=== PATIENT | male | born 1980 | race African-American/Black ===

== ENCOUNTER 2022-09-27 11:01 | Emergency (ER) | payer OTHER ==
--- OUTSIDE RECORDS SUMMARY | 2022-09-27 11:05 | XMS REPORT | Continuity of Care Document ---
:1980 Author Organization [facility] t Address [address] [facility] [address] [place] [address] Care Team Providers Name Role Phone Pcp-None Primary Care Physician Unavailable Betsy Acevedo Attending Clinician Unavailable LISA GAYTAN Attending Clinician Unavailable Lisa Lee Attending Clinician Vinh Skaggs Attending Clinician Unavailable Killian Blakely Attending Clinician Unavailable Payers Payer Name Policy Type Policy Number Effective Date Expiration Date S ource Problems This patient has no known problems. Allergies, Adverse Reactions, Alerts Allergy Allergy Status Severity Reaction(s) Onset Inactive Treating Comm ents Source Name Type Date Date Clinician No Known DA Active U 2021-02 [facility] 1-06 Allergie 00:00: s 00 No Known DA [facility]ie 00:00: s 00 No Known DA Active U 2021-02 [facility] 0-22 Allergie 00:00: s 00 Social History Social Habit Start Date Stop Date Quantity Comments Source Gender identity 2021-12-19 Identifies as male [facility] 12:08:35 gender (finding) Sexual orientation 2021-12-19 Heterosexual [facility] 12:08:35 (finding) Exposure to 2021-12-11 2021-12-21 Not sure [facility] SARS-CoV-2 (event) 00:00:00 17:14:00 Sex Ass[birth year] At [birth year] [facility] alth 00:00:00 00:00:00 Medications This patient has no known medications. Vital Signs Vital Name Observation Time Observation Value Comments Source Heart rate 2021-12-21 17:14:00 72 /min [facility] Body temperature 2021-12-21 17:14:00 37.11 [facility] Respiratory rate 2021-12-21 17:14:00 18 /min [facility] Body height 2021-12-21 17:14:00 203.2 cm [facility] Body weight 2021-12-21 17:14:00 104.327 kg Rodrig[facility] BMI 2021-12-21 17:14:00 25.27 kg/m2 [facility] Oxygen saturation in 2021-12-21 17:14:00 98 /min [facility] Arterial blood by Pulse oximetry Systolic blood pressure 2021-12-21 17:14:00 151 mm[Hg] [facility] Diastolic blood pressure 2021-12-21 17:14:00 90 mm[Hg] [facility] Heart rate 2021-12-21 17:14:00 72 /min [facility] ealt Body temperature 2021-12-21 17:14:00 37.11 [facility] Respiratory rate 2021-12-21 17:14:00 18 /min [facility] Body height 2021-12-21 17:14:00 203.2 cm [facility] Body weight 2021-12-21 17:14:00 104.327 kg [facility] BMI 2021-12-21 17:14:00 25.27 kg/m2 [facility] ealt Oxygen saturation in 2021-12-21 17:14:00 98 /min [facility] Arterial blood by Pulse oximetry Systolic blood pressure 2021-12-21 17:14:00 151 mm[Hg] [facility] Diastolic blood pressure 2021-12-21 17:14:00 90 mm[Hg] [facility] Procedures This patient has no known procedures. Encounters Start End Encounter Admission Attending Care Care Encounter Source Date/Time Date/Time Type Type Clinicians Facility Department ID 2022-01-01 2022-01-01 Emergency Emergency GEORGES Acevedogarland [facility] [id number] [facility] 03:54:00 04:52:00 Betsy 07 2021-12-21 2021-12-22 Emergency [facility] [id number] [place] 17:48:00 04:42:00 [facility] 2021-12-21 2021-12-22 Emergency JAVAN Gaytan [id number] [place] 17:48:00 04:42:00 [place] [id number] [facility] .[id number] 2021-12-18 Emergency Emergency Skefos, [facility] [id number] [facility] 01:47:00 06:58:00 Chrystan 2021-12-18 2021-12-18 Emergency Emergency Skefos, [facility] [id number] [facility] 01:47:00 01:47:00 Chrystan 2021-12-17 2021-12-17 Emergency Emergency Killian Blakely [facility] JM [id number] [facility] 10:45:00 13:15:00 78 2021-12-17 2021-12-17 Emergency [facility] [id number] [facility] 10:45:00 10:45:00 78 Results Test Description Test Time Test Comments Results Result Comments Source Complete Blood Count Auto Diff 2021-12-18 02:43:00 Test Item Value Reference Range Interpretation Comme nts White Blood Count (test code = WBCT) 12.3 x10 3/uL 4.4-10.5 H Red Blood Count (test code = RBC) 3.99 x10 6/uL 4.10-5.70 L Hemoglobin (test code = HGBT) 11.9 g/dL 13.4-17.4 L Hematocrit (test code = HCTT) 35.9 % 38.7-52.0 L Mean Corpuscular Volume (test code = MCV) 90.00 fL 80.00-100.00 N Mean Corpuscular Hemoglobin (test code = MCH) 29.8 pg 27.0-32. 5 N Mean Corpuscular HGB Conc (test code = MCHC) 33.10 g/dL 32.00-37. 50 N RDW Coefficient of Variation (test code = RDWCV) 12.5 % 11.5- 14.5 N Platelet Count (test code = PLTT) 210.0 x10 3/uL 140.0-440.0 N Mean Platelet Volume (test code = MPV) 9.5 fL Immature Granulocytes % (Auto) (test code = IMMGRAN%) 0.2 % 0.0-5.0 N Neutrophils % (Auto) (test code = NE%) 79.0 % 36.0-70.0 H Lymphocytes % (Auto) (test code = LY%) 12.9 % 12.0-44.0 N Monocytes % (Auto) (test code = MO%) 7.5 % 0.0-11.0 N Eosinophils % (Auto) (test code = EO%) 0.2 % 0.0-7.0 N Basophils % (Auto) (test code = BA%) 0.2 % 0.0-2.0 N Immature Granulocytes # (Auto) (test code = IMMGRAN#) 0.03 x10 3/uL Neutrophils # (Auto) (test code = NE#) 9.7 x10 3/uL 1.6-7.4 H Lymphocytes # (Auto) (test code = LY#) 1.59 x10 3/uL 0.50-4.60 N Monocytes # (Auto) (test code = MO#) 0.92 x10 3/uL 0.00-1.20 N Eosinophils # (Auto) (test code = EO#) 0.02 x10 3/uL 0.00-0.74 N Basophils # (Auto) (test code = BA#) 0.03 x10 3/uL 0.00-0.21 N nRBC Abs (test code = NRBCA) 0 nRBC Pct (test code = NRBCP) 0 % Comprehensive Metabolic [id number] 02:43:00 Test Item Value Reference Range Interpretation Comments SODIUM (test code = NA) 139.0 mmol/L 136.0-145.0 N Potassium,K (test code = K) 4.8 mmol/L 3.0-5.1 N Chloride (test code = CL) 104 mmol/L 98-107 N Carbon Dioxide (test code = 30 mmol/L 20-31 N CO2) Anion Gap (test code = GAP) 5 mmol/L 5-15 N Blood Urea Nitrogen (test code 25 mg/dL 9-23 H = BUN) Creatinine (test code = CREATT) 1.29 mg/dL 0.55-1.02 H Creatinine Clr Calc Pharmacy 103.36 mL/min (test code = CRCLPHA) Estimated GFR ( Catrina > 60 mL/min/1.73m2 (test code = EGFRAA) Estimated GFR (Non Afr Catrina > 60 mL/min/1.73m2 (test code = EGFRNAA) BUN/Creatinine Ratio (test code 19 ratio 10-20 N = BCRATIO) Glucose (test code = GLU) 99 mg/dL 74-106 N Osmolality,Calculated (test 291.9 code = OSMOC) Calcium (test code = CA) 9.3 mg/dL 8.3-10.6 N Bilirubin,Total (test code = 0.9 mg/dL 0.2-1.1 N BILIT) Aspartate Amino Transferase 46 U/L 0-34 H (test code = AST) Alanine Aminotransferase (test 14 U/L 10-49 N code = ALT) Total Protein (test code = TP) 7.8 g/dL 5.7-8.2 N Albumin Level (test code = ALB) 4.6 g/dL 3.2-4.8 N Globulin (test code = GLOB) 3.2 mg/dL 2.3-3.5 N Albumin/Globulin Ratio (test 1.4 ratio 0.8-2.0 N code = AGRATIO) Alkaline Phosphatase (test code 73 U/L 46-116 N = ALP) [id number] 02:43:00 Test Item Value Reference Range Interpretation Comments Lipase (test code = LIP) 41 U/L 12-53 N Complete Blood Count Auto [id number] 11:20:00 Test Item Value Reference Range Interpretation Comments White Blood Count (test code = 8.8 x10 3/uL 4.4-10.5 N WBCT) Red Blood Count (test code = 4.42 x10 6/uL 4.10-5.70 N RBC) Hemoglobin (test code = HGBT) 13.2 g/dL 13.4-17.4 L Hematocrit (test code = HCTT) 41.0 % 38.7-52.0 N Mean Corpuscular Volume (test 92.80 fL 80.00-100.00 N code = MCV) Mean Corpuscular Hemoglobin 29.9 pg 27.0-32.5 N (test code = MCH) Mean Corpuscular HGB Conc 32.20 g/dL 32.00-37.50 N (test code = MCHC) RDW Coefficient of Variation 12.3 % 11.5-14.5 N (test code = RDWCV) Platelet Count (test code = 219.0 x10 3/uL 140.0-440.0 N PLTT) Mean Platelet Volume (test 9.2 fL code = MPV) Immature Granulocytes % (Auto) 0.2 % 0.0-5.0 N (test code = IMMGRAN%) Neutrophils % (Auto) (test 64.7 % 36.0-70.0 N code = NE%) Lymphocytes % (Auto) (test 25.8 % 12.0-44.0 N code = LY%) Monocytes % (Auto) (test code 8.0 % 0.0-11.0 N = MO%) Eosinophils % (Auto) (test 1.0 % 0.0-7.0 N code = EO%) Basophils % (Auto) (test code 0.3 % 0.0-2.0 N = BA%) Immature Granulocytes # (Auto) 0.02 x10 3/uL (test code = IMMGRAN#) Neutrophils # (Auto) (test 5.7 x10 3/uL 1.6-7.4 N code = NE#) Lymphocytes # (Auto) (test 2.28 x10 3/uL 0.50-4.60 N code = LY#) Monocytes # (Auto) (test code 0.71 x10 3/uL 0.00-1.20 N = MO#) Eosinophils # (Auto) (test 0.09 x10 3/uL 0.00-0.74 N code = EO#) Basophils # (Auto) (test code 0.03 x10 3/uL 0.00-0.21 N = BA#) nRBC Abs (test code = NRBCA) 0 nRBC Pct (test code = NRBCP) 0 % Comprehensive Metabolic [id number] 11:20:00 Test Item Value Reference Range Interpretation Comments SODIUM (test code = NA) 140.0 mmol/L 136.0-145.0 N Potassium,K (test code = K) 3.9 mmol/L 3.0-5.1 N Chloride (test code = CL) 103 mmol/L 98-107 N Carbon Dioxide (test code = 29 mmol/L 20-31 N CO2) Anion Gap (test code = GAP) 8 mmol/L 5-15 N Blood Urea Nitrogen (test code 13 mg/dL 9-23 N = BUN) Creatinine (test code = CREATT) 1.00 mg/dL 0.55-1.02 N Creatinine Clr Calc Pharmacy 116.55 mL/min (test code = CRCLPHA) Estimated GFR ( Catrina > 60 mL/min/1.73m2 (test code = EGFRAA) Estimated GFR (Non Afr Catrina > 60 mL/min/1.73m2 (test code = EGFRNAA) BUN/Creatinine Ratio (test code 13 ratio 10-20 N = BCRATIO) Glucose (test code = GLU) 96 mg/dL 74-106 N Osmolality,Calculated (test 289.6 code = OSMOC) Calcium (test code = CA) 9.1 mg/dL 8.3-10.6 N Bilirubin,Total (test code = 0.5 mg/dL 0.2-1.1 N BILIT) Aspartate Amino Transferase 34 U/L 0-34 N (test code = AST) Alanine Aminotransferase (test 13 U/L 10-49 N code = ALT) Total Protein (test code = TP) 8.0 g/dL 5.7-8.2 N Albumin Level (test code = ALB) 4.7 g/dL 3.2-4.8 N Globulin (test code = GLOB) 3.3 mg/dL 2.3-3.5 N Albumin/Globulin Ratio (test 1.4 ratio 0.8-2.0 N code = AGRATIO) Alkaline Phosphatase (test code 75 U/L 46-116 N = ALP) Ethanol [id number] 11:20:00 Test Item Value Reference Range Interpretation Comments Ethanol (test code < 3 mg/dL The pharm acological = ETOH) response to blo od alcohol levels mayvary from individual to i ndividual. The fatal rebeca ntrationhas been reported t o be >400mg/dL. UA, Urinalysis Rflx Cult/[id number] 11:10:00 Test Item Value Reference Range Interpretation Comments Color,Urine (test code = UCOL) Yellow Yellow Clarity,Urine (test code = Clear Clear UCLAR) Ph, Urine (test code = UPH) 6.0 5.0-9.0 N Specific [place],Urine (test 1.015 1.005-1.030 N code = USG) Blood,Urine (test code = UBLD) Negative mg/dL Negative Protein,Urine (test code = Negative mg/dL Negative UPRO) Glucose,Urine (UA) (test code Negative mg/dL Negative = UGLU) Ketones,Urine (test code = Negative mg/dL Negative UKET) Nitrate,Urine (test code = Negative Negative UNIT) Bilirubin,Urine (test code = Negative mg/dL Negative UBIL) Urobilinogen,Urine (test code 1.0 E.U./dL Normal = UURO) Leukocyte Esterase,Urine (test Negative mg/dL Negative code = ULEU) Drug Screen,[id number] 11:10:00 Test Item Value Reference Range Interpretation Comments PCP Phencyclidine Screen,Urine (test Negative Negative code = PCPU) Amphetamine Screen,Urine (test code Negative Negative = AMPU) Methadone Screen,Urine (test code = Negative Negative METHU) Opiate Screen,Urine (test code = Negative Negative UOPIS) Barbituates Screen,Urine (test code Negative Negative = BARBU) Benzodiazepines Screen,Urine (test Negative Negative code = UBENZS) Cocaine Screen,Urine (test code = Negative Negative UCOCS) Cannabinoid Screen,Urine (test code Negative Negative = UTHCS) Propoxyphene Screen, Urine (test Negative Negative code = UPROP) Coronavirus PCR, COVID19 [id number] 10:55:00 Test Item Value Reference Range Interpretation Comments Coronavirus PCR, For use under Emergency COVID19 Rapid (test Use Authorization (EUA) code = SARSCOV2) only. Coronavirus PCR, Reference Range: COVID19 Rapid (test Negative code = RDGHSBO04.1) SARS-CoV-2 PCR Result: Negative by RT-PCR (test code = SARS-CoV-2 PCR Result:) COVID-19 Status: AsymptomaticCT abdomen pelvis w contrast [facility] [address] [place] [address] Patient Name: Jill Sultana Medical Record#: [id number] Address: Homeless City/State/Zip: [place] [address]: Vinh Skaggs MD Insurance: Self Pay /Age/Sex: 1980/41/M Admit/Reg Date: 12/18/[address]: Vinh Skaggs MD L ocation: SJMED/ PCP: Pcp-Md SHERRON Castro Date of Service: 12/18/21 Order (s): CT abdomen pelvis w contrast CPT Code: 20497 Report Number: [id number] Reason for Exam: pain, swallowed razor a few days ago EXAMINATION: CT abdomen pelvis w contrast CLINICAL INDICATION: Male, 41 years old with pain, swallowed razor a few days ago TECHNIQUE: Thin section axial post-contrast contiguous images were obtained through the abdomen and pelvis followed by coronal and sagittal multiplanar reformations. One or moreof the following dose reduction techniques were used: Automated exposure control, adjustment of the mA and/or kV according to patient size, and/or iterative reconstruction. Unless otherwise specified, i ncidental findings do not require dedicated imaging follow-up. COMPARISON: None FINDINGS: Lower Chest: Visualized lung bases are clear. Heart is normal in size. No pericardial or pleural effusion. Liver: Normal in size and contour. No focal lesions. Bile ducts are of normal caliber. Gallbladder: No stones, wall thickening, or pericholecystic fluid. Pancreas: Normal appearance without focal lesion. Spleen: Normal in size and contour. Adrenals: Normal configuration. Kidneys and ureters: Bilateral punctate 1 mm nonobstructing renal calculi are present. Bladder/Reproductive Organs: Normal in appearance. Unremarkable reproductive organs Bowel: Loops of bowel without wall thickening or obstruction. Moderate feces is noted. No free air, free fluid, or fluid collection. Lymph nodes: There are no pathologically enlarged abdominopelvic lymph nodes. Retroperitoneum: No mass or hemorrhage. Abdominal aorta and inferior vena cava are normal in course and caliber. Abdominal wall: No hernia or mass. Bones: Noacute abnormality or suspicious bony lesion. IMPRESSION: No acute abdominopelvic abnormality. No radiopaque foreign body is appreciated. Electronically signed by: Get Stevenson MD 12/18/2021 3:37 AM CDT Dictated By: Get Stevenson MD 12/18/21 0313 Signed By: Get Stevenson MD 12/18/21 2129 TD/TT: 12/18/21 0313 Tech: [facility] cc: PCPNO; SKECH* Vinh Skaggs MD; Pcp-Md SHERRON Castro Notes Date/Time Note Provider Source 2022-01-01 [facility] 04:26:00-00:00 [address] [place] [address] Emergency Department Document Signed Patient: Jill Sultana Medical Record#: [id number] : 1980 Acct:[id number] Age/Sex: 41 / M Admit/Reg Date: 01/01/22 Loc: [facility] Room: Report Number: [id number]: Betsy Acevedo MD Arrival - Arrival ED Triage Note: pt to er for bilateral foot pain 12/05. pt presents with blisters to bilateral feet x1.5 weeks. pt states he has a size 12 shoe but is a 15. Extremity Problem HPI - General Primary Care Provider: Pcp-Md Matthew - General Chief complaint: Extremity Injury, Lower Stated complaint: Pain in both feet - History of Present Illness HPI Narrative: 41-year-old male with no sig nificant medical history presents with complaint of pain is both his feet. He states he is homele ss and has been doing extensive walking. He states nobody wants to provide him with any assista nce a on the streets. Complains of pain in his feet and has not taken for the pain. He also states he sustained. He with a size 15 but because he is homeless he is wearing his size 12 shoes. (Betsy Acevedo) - Related Data Previous Rx's Medication Instructions Recorded ondansetron HCl 4 mg tablet 4 mg PO Q8H #20 tabs 12/18/21 Allergies Allergy/AdvReac Type Severity Reaction Status Da te / Time No Known Drug Allergies Allergy Verified 2 04:13 Review of Systems ROS: Twelve system review was don e and is negative except for as mentioned HPI (Betsy Acevedo) Past Medical/Surgical History Medical History: Medical History (Last Updated 01/01/22 @ 04:28 b y Betsy Acevedo MD) Patient denies significant medical history ([facility] claudio) Surgical History: Surgical History (Last Reviewed 12/23/21 @ 23:47 by Vinh Skaggs MD) No history of previous surgery (Surgical) Family/Social History - Family History Family History: reviewed, not pertinent - Social History Living Situation: Homeless Smoking Status: Never tobacco user Do you drink alcohol: No Current or Hx of Recreational Drug use: No Physical Exam Triage Vital Signs: Temperature 37.2 C 01/01/22 04:12 Temperature Source Oral 01/01/22 04:12 Pulse Rate 108 H 01/01/22 04:12 Respiratory Rate 18 01/01/22 04:12 Blood Pressure 164/92 H 01/01/22 04:12 Blood Pressure Source Automatic Cuff 01/01/22 04 :12 Blood Pressure Mean 116 01/01/22 04:12 O2 Sat by Pulse Oximetry 99 01/01/22 04:12 Oxygen Delivery Method 01/01/22 04:12 Pain Intensity 10 01/01/22 04:12 Physical Exam: I have reviewed the triage vital signs. Const: Well nourished, well developed, no acute distress Eyes: PERRL, no conjunctival injection HENT: NCAT Neck supple no palpable nodes CV: Tachycardic RESP: CTAB, Unlabored respiratory effort GI: soft, non-tender, non-distended, no masses MSK: Palpable dorsalis pedis pulse bilaterally, no erythema or swelling of the feet, has a small blister on the sole of the right foot Skin: Warm, dry. No rashes Neuro: Alert, director federal II-XII kajal ssly intact. Sensation and motor function of extremities grossly intact. Psych: Appropriate mood and affect. (Afuwape,L ukuman O) Results/Orders - Results and Orders Medications Ordered: Ketorolac Tromethamine (Ketorolac 60 Mg/2 Ml Inj ) 60 mg IM ONCE ONE Stop: 01/01/22 04:14 MDM/COURSE Vital Signs Temperature 37.2 C 01/01/22 04:12 Pulse Rate 108 H 01/01/22 04:12 Respiratory Rate 18 01/01/22 04:12 Blood Pressure 164/92 H 01/01/22 04:12 O2 Sat by Pulse Oximetry 99 01/01/22 04:12 Temperature 37.2 C 01/01/22 04:12 Pulse Rate 108 H 01/01/22 04:12 Respiratory Rate 18 01/01/22 04:12 Blood Pressure 164/92 H 01/01/22 04:12 O2 Sat by Pulse Oximetry 99 01/01/22 04:12 Discharge Plan - Discharge Clinical Impression: Pain in both feet Disposition: Home or Self-Care Condition: Good Instructions: RICE Care Plan Goals: Please follow-up with your [facility] doctor. Please return to emergency room if symptoms worsen or if you have any other concerns. Prescriptions: No Action ondansetron HCl 4 mg Tablet 4 mg PO Q8H Qty: 20 RF: 0 Referrals: Pcp-Md Castro MD [Primary Care Provider] - Print Language: Paraguayan - Discharge Data Time Seen by Provider: 01/01/22 04:07 Dictated By: Betsy Acevedo MD Signed By: Betsy Acevedo MD 01/01/22429 DD/ 5 TD/TT: 01/01/22425 Coffee Sampler: ABHIJIT cc: PCPNO* Pcp-Md SHERRON Castro 2021-12-22 Formatting of this note might be differe nt from the original. Madyson Purvis [facility] 04:41:23-00:00 DNA x3 for triage. System Electronically signed by Madyson Purvis at 4:41 AM CDT
--- NOTE | 2022-09-27 12:25 | RAD REPORT ---
EXAM DESCRIPTION: RAD -Hand Left 3 View - 09/27/2022 11:26 am CLINICAL HISTORY: Left hand pain status post injury FINDINGS: Lateral subluxation of the first proximal phalanx is present. Cortical irregularity involves the trapezium which may represent a fracture. There may be a dislocati on first carpometacarpal joint. CT would be helpful for further evaluation.
--- NOTE | 2022-09-27 13:12 | RAD REPORT ---
EXAM DESCRIPTION: CT - Hand Left Wo Con - 09/27/2022 12:52 pm CLINICAL HISTORY: deformity left thumb Trauma, pain COMPARISON: No comparisons FINDINGS: There is an impacted and mildly comminuted fracture seen of the trapezium. Small bony frag ments are seen. There is subluxation of the first carpometacarpal joint. No complete dislocation seen . Slight impacted fracture is also seen involving the base of the first metacarpal. Moderate adjacent soft tissue swelling. No additional fracture seen IMPRESSION: Comminuted fracture with impaction is noted as detailed involving the first carpal/metac arpal joint. All CT scans are performed using dose optimization technique as appropriate and may include automated exposure control or mA/KV adjustment according to patient size.
--- NOTE | 2022-09-27 13:18 | ER ---
Nurse's Notes [facility] Name: Lio Garcia Age: 42 yrs Sex: Male : 1980 Arrival Date: 09/27/2022 Time: 11:01 Bed IW1 Private MD: Diagnosis: Displaced fracture of trapezium [larger multangular], left wrist, initial encounter for closed fracture Presentation: 09/27 11:21 Chief complaint: Patient states: left thumb injury. Coronavirus screen: Vaccine status: mt1 Patient reports being unvaccinated. At this time, the client does not indicate any symptoms associated with coronavirus-19. Ebola Screen: No symptoms or risks identified at this time. Initial Sepsis Screen: Does the patient meet any 2 criteria? No. Patient's initial sepsis screen is negative. Does the patient have a suspected source of infection? No. Patient's initial sepsis screen is negative. Risk Assessment: Do you want to hurt yourself or someone else? Patient reports no desire to harm self or others. Onset of symptoms is unknown. 11:21 Method Of Arrival: Ambulatory [facility] 11:21 Acuity: SUNDEEP 4 [facility] Triage Assessment: 11:22 General: Appears uncomfortable, well groomed, well developed, well nourished, Behavior me1 is calm, cooperative, appropriate for age, Reports falling about 1.5 weeks ago and injured his left thumb. Deformity noted to left thumb upon inspection. Pain: Complains of pain in left thumb Pain does not radiate. Pain currently is 5 out of 10 on a pain scale. Quality of pain is described as dull, Pain began 1.5 weeks ago. Is continuous. Neuro: Level of Consciousness is awake, alert, obeys commands, Oriented to person, place, time, situation. Cardiovascular: Capillary refill < 3 seconds Patient's skin is warm and dry. Respiratory: Respiratory effort is even, unlabored, Respiratory pattern is regular, symmetrical. Musculoskeletal: left thumb. Injury Description: s/p fall about 1.5 weeks ago and injured left thumb. Historical: - Allergies: : No Known Allergies; me1 - Home Meds: : None [Active]; me1 - PSHx: : reconstruction of club foot as infant; me1 - Immunization history:: Adult Immunizations up to date. - Social history:: Smoking status: Patient reports the use of cigarette tobacco products, smokes one pack cigarettes per day. - Family history:: not pertinent. - Hospitalizations: : No recent hospitalization is reported. Screenin:26 [facility] ED Fall Risk Assessment (Adult) Score/Fall Risk Level 0 - 2 = Low Risk me1 Maintained a safe environment, Provided non-skid footwear, Hourly rounding (assess needs \T\ fall precautionary measures) done. Abuse screen: Denies threats or abuse. Nutritional screening: No deficits noted. Tuberculosis screening: No symptoms or risk factors identified. Assessment: 11:26 Reassessment: No changes from previously documented assessment. General: see triage me1 assessment. . 13:28 Reassessment: No changes from previously documented assessment. me1 Vital Signs: 11:21 BP 124 / 83; Pulse 79; Resp 16; Temp 98.1(O); Pulse Ox 100% on R/A; Height 6 ft. 8 in. me1 ; Pain 5/10; 11:21 Pain Scale: Adult mt1 ED Course: 11:04 Patient arrived in ED. mr 11:06 David Barrera MD is Attending Physician. rn 11:22 Triage completed. me1 11:26 Patient has correct armband on for positive identification. Provided Education on: POC, me1 verbalized understanding. . 11:27 XRAY Hand LEFT 3 View In Process Unspecified. EDMS 12:54 Hand Left Wo Con In Process Unspecified. EDMS 13:16 Pepito Casas MD is Referral Physician. rn Administered Medications: No medications were administered Medication: 11:26 VIS not applicable for this client. me1 Outcome: 13:17 Discharge ordered by . rn 13:29 Patient left the ED. mt1 Signatures: Dispatcher [employer] [facility] Marleni Hough mr David Barrera MD MD rn Eddleman, Michelle, RN RN me1
--- NOTE | 2022-09-27 13:18 | EDPHYS ---
Physician Documentation [facility] Name: Lio Garcia Age: 42 yrs Sex: Male : 1980 Arrival Date: 09/27/2022 Time: 11:01 Bed IW1 Private MD: ED Physician David Barrera HPI: 09/27 11:13 This 42 yrs old Black Male presents to ER via Unassigned with complaints of Thumb rn Injury. 11:13 The patient or guardian reports decreased range of motion, deformity, injury, pain. The rn complaints affect the MCP of left thumb and CMC of left thumb. Onset: The symptoms/episode began/occurred 1.5 week(s) ago. Modifying factors: The symptoms are alleviated by nothing, the symptoms are aggravated by nothing. Severity of symptoms: At their worst the symptoms were mild, in the emergency department the symptoms are unchanged. The patient has not experienced similar symptoms in the past. Pt states fell 1.5 weeks ago, injured left thumb, decreased ROM, thinks is dislocated, hard to work with his hands the last week so came in for eval. No laceration or wound. . Historical: - Allergies: 11:22 No Known Allergies; me1 - Home Meds: 11:22 None [Active]; me1 - PSHx: 11:22 reconstruction of club foot as infant; me1 - Immunization history:: Adult Immunizations up to date. - Social history:: Smoking status: Patient reports the use of cigarette tobacco products, smokes one pack cigarettes per day. - Family history:: not pertinent. - Hospitalizations: : No recent hospitalization is reported. ROS: 11:13 Constitutional: Negative for fever, chills, and weight loss, MS/Extremity: + injury and rn decreased ROM left thumb Exam: 11:13 MS/ Extremity: Pulses equal, no cyanosis. Neurovascular intact. THumb flattened and rn decreased mobility at MCP joint, able to flex and extend, just not fully, no open wounds. Vital Signs: 11:21 BP 124 / 83; Pulse 79; Resp 16; Temp 98.1(O); Pulse Ox 100% on R/A; Height 6 ft. 8 in. me1 ; Pain 5/10; 11:21 Pain Scale: Adult me1 MDM: 11:06 Patient medically screened. rn 13:16 Differential diagnosis: dislocation, closed fracture. Data reviewed: vital signs, rn nurses notes, radiologic studies, CT scan, plain films, and as a result, I will discharge patient. Counseling: I had a detailed discussion with the patient and/or guardian regarding: the historical points, exam findings, and any diagnostic results supporting the discharge/admit diagnosis, radiology results, the need for outpatient follow up, to return to the emergency department if symptoms worsen or persist or if there are any questions or concerns that arise at home. Special discussion: I discussed with the patient/guardian in detail that at this point there is no indication for admission to the hospital. It is understood, however, that if the symptoms persist or worsen the patient needs to return immediately for re-evaluation. Based on the history and exam findings, there is no indication for further emergent testing or inpatient evaluation. I discussed with the patient/guardian the need to see the hand specialist for further evaluation of the symptoms. 09/27 11:13 Order name: XRAY Hand LEFT 3 View; Complete Time: 12:26 rn 09/27 12:35 Order name: Hand Left Wo Con; Complete Time: 13:13 EDMS 09/27 13:16 Order name: Splint - Thumb Spica; Complete Time: 13:29 rn Administered Medications: No medications were administered Disposition Summary: 09/27/22 13:17 Discharge Ordered Location: Home rn Problem: new rn Symptoms: are unchanged rn Condition: Stable rn Diagnosis - Displaced fracture of trapezium [larger multangular], left wrist, initial encounter rn for closed fracture Followup: rn - With: Pepito Casas MD - When: As needed - Reason: Recheck today's complaints, Re-evaluation by your physician Discharge Instructions: - Discharge Summary Sheet rn - Wrist Fracture Treated With Immobilization rn Forms: - Medication Reconciliation Form rn - Thank You Letter rn - Antibiotic ortho rn - Prescription Opioid Use rn - Patient Portal Instructions rn Signatures: Dispatcher [employer] EDDavid Roman MD MD rn Eddleman, Michelle, RN RN me1 Corrections: (The following items were deleted from the chart) 12:35 12:31 CT LEFT HAND WO CONTRAST ordered. EDUT EDUT
[2022-09-27 13:49] VITALS: BP 124/83; TEMP 98.1; O2SAT 100
== END 2022-09-27 13:29 | disposition home or self-care (01) ==
LOC: ER 11:01
DX: S62.172A Displaced fracture of trapezium [larger multangular], left wrist, initial encounter for closed fracture (principal)
CPT/HCPCS: 73200

== ENCOUNTER 2024-05-28 23:41 | Emergency (ER) | payer OTHER ==
--- NOTE | 2024-05-29 02:34 | RAD REPORT ---
EXAM: CT Head and Cervical Spine Without Intravenous Contrast CLINICAL HISTORY: TRAUMA TECHNIQUE: Axial computed tomography images of the head/brain and cervical spine without intravenous contrast. Sagittal and coronal reformatted images were created and reviewed. This CT exam was performed using one or more of the following dose reduction techniques: automated exposure control, adjustmen t of the mA and/or kV according to patient size, and/or use of iterative reconstruction technique. COMPARISON: No relevant prior studies available. FINDINGS: Brain: Unremarkable. No hemorrhage. No significant white matter disease. No edema. Ventricles: Unremarkable. No ventriculomegaly. Skull: No acute fracture. Sinuses: Unremarkable as visualized. No acute sinusitis. Mastoid air cells: Unremarkable as visualized. No mastoid effusion. Vertebrae: Unremarkable. No acute fracture. Normal alignment. Discs/spinal canal/neural foramina: No acute findings. No spinal canal stenosis. Soft tissues: Unremarkable. IMPRESSION: 1. No acute intracranial or extra-axial abnormality. 2. No acute cervical spine injury. Electronically signed by: Akua Singh MD 05/29/2024 01:46 AM [facility] Due to temporary technical issues with the PACS/Mumart reporting system, reports are being keon d by the in-house radiologist without review as a courtesy to ensure prompt reporting the interpreting radiologist is fully responsible for the content of the report. Transcribed Date/Time: 05/29/2024 2:34 AM
--- NOTE | 2024-05-29 02:36 | RAD REPORT ---
ADDENDUM #1 Addendum: Dr. Dunne discussed these urgent findings with Dr Altaf Sanches via telephone at approximately 03:3 5 hours EST on 05/29/2024. Electronically signed by: Jose F Dunne MD 05/29/2024 02:37 AM CDT RP End of Addendum PROCEDURE: CT Chest, Abdomen and Pelvis Without Intravenous Contrast CLINICAL INDICATION: The patient is 44 years old and is Male; Swallowed razor blades. TECHNIQUE: Axial computed tomography images of the chest, abdomen and pelvis without intravenous contrast. Sag ittal and coronal reformatted images were created and reviewed. This CT exam was performed using one or more of the following dose reduction techniques: automated exposure control, adjustment of t he mA and/or kV according to patient size, and/or use of iterative reconstruction technique. COMPARISON: CT Abdomen pelvis 12/18/2021. FINDINGS: CHEST: LUNGS: Unremarkable No mass. No consolidation. PLEURAL SPACE: Unremarkable No significant effusion. No pneumothorax. HEART: Unremarkable No cardiomegaly. No significant pericardial effusion. No significant tito nary artery calcifications. ABDOMEN: LIVER: Unremarkable GALLBLADDER AND BILE DUCTS: Unremarkable No calcified stones. No ductal dilation. PANCREAS: Unremarkable No ductal dilation. SPLEEN: Unremarkable No splenomegaly. ADRENALS: Unremarkable No mass. KIDNEYS AND URETERS: Tiny bilateral nonobstructive intrarenal stones. No hydronephrosis or obstructive intrarenal or intraureteral stones. STOMACH AND BOWEL: Additional round approximately 1 cm radiodense foci demonstrated throughout the mid to distal small bowel and ascending through transverse colonic lumen, presumably reflecting ingested capsules or similar material. Fecalization contents of multiple loops of small bowel. Nonspecific, but suggests decreased m otility. No obstruction. No mucosal thickening. PELVIS: APPENDIX: No findings to suggest acute appendicitis. BLADDER: Unremarkable No stones. REPRODUCTIVE: Unremarkable as visualized. CHEST, ABDOMEN and PELVIS: INTRAPERITONEAL SPACE: Numerous approximately 1 cm rounded hyperdense foci demonstrated within the gastric lumen, surrounding 2 obliquely oriented razor blades within the mid gastric lumen. No pneumoperitoneum to suggest hollow viscus perforation. No significant fluid collection. BONES/JOINTS: Healing lateral left-sided 10th and 11th rib fractures, with both demonstrating callu s formation and slight depression of the 11th rib fracture. Mild anterior wedge compression deformities of the T12 and L1 vertebral bodies, which appear chronic, though the T12 compression deformity is new from 202 exam. No dislocation. No acute vertebral fracture. SOFT TISSUES: Small fat-containing umbilical and periumbilical hernias. Additional small superior m idline and left of midline supraumbilical ventral wall hernias. Prominent collateral veins demonstrated in the anterior bilateral thigh subcutaneous tissues. VASCULATURE: Unremarkable No aortic aneurysm. LYMPH NODES: Reactive appearing bilateral inguinal lymphadenopathy. IMPRESSION: 1. Numerous approximately 1 cm rounded hyperdense foci demonstrated within the gastric lumen, surro unding 2 obliquely oriented razor blades within the mid gastric lumen. No pneumoperitoneum to suggest hollow viscus perforation. 2. Additional round approximately 1 cm radiodense foci demonstrated throughout the mid to distal sm all bowel and ascending through transverse colonic lumen, presumably reflecting ingested capsules or similar material. Clinical correlation recommended. 3. Fecalization contents of multiple loops of small bowel. Nonspecific, but suggests decreased sheyla lity. 4. Healing lateral left-sided 10th and 11th rib fractures, with both demonstrating callus formation and slight depression of the 11th rib fracture. 5. Mild anterior wedge compression deformities of the T12 and L1 vertebral bodies, which appear chr onic, though the T12 compression deformity is new from 202 exam. 6. Tiny bilateral nonobstructive intrarenal stones. No hydronephrosis or obstructive intrarenal or intraureteral stones. Electronically signed by: Jose F Dunne MD 05/29/2024 02:32 AM CDT Due to temporary technical issues with the PACS/UR Mobile reporting system, reports are being keon d by the in-house radiologist without review as a courtesy to ensure prompt reporting the interpreting radiologist is fully responsible for the content of the report. Transcribed Date/Time: 05/29/2024 2:49 AM
[2024-05-29] MEDS ORDERED: LIDOCAINE 1% MPF 5 ML VIAL ONE (03:52)
[2024-05-29 04:12] LABS: Absolute Basophils 0.1 K/uL (0-0.5); Absolute Monocytes 0.6 K/uL (0.1-1.3); Absolute Neutrophil 6.2 K/uL (1.8-8.0); Basophils % 0.7 % (0-1.3); Eosinophils % 0.4 % (0-4.4); Hemoglobin 12.2 g/dL (13.6-17.9); Lymphocytes % 22.7 % (15.3-44.8); MCH 29.6 pg (27.0-35.0); MCV 89.9 fL (80-100); MPV 7.6 fL (7.6-11.3); Monocytes % 6.8 % (3.3-12.3); Neutrophils % 69.4 % (41.7-73.7); Platelets 202 thou/uL (152-406); RBC Red Blood Cell Count 4.12 M/uL (4.33-5.43); Red Cell Distribution Width 13.6 % (12.1-15.2)
[2024-05-29 04:21] LABS: PT Prothrombin Time 11.6 SECONDS (10-13.0); PTT, Activated Partial Thromb 28.8 SECONDS (27.2-37.4); Protime INR 1.02
[2024-05-29 04:30] LABS: ALT/SGPT 24 U/L (16-61); AST/SGOT 21 U/L (15-37); Albumin 3.7 g/dL (3.4-5.0); Albumin/Globulin Ratio 0.9 (1.1-1.8); Alkaline Phosphatase 64 U/L (45-117); Anion Gap 6.6 mEq/L (5.0-15.0); BUN Blood Urea Nitrogen 14 mg/dL (7-18); Bicarbonate 27 mEq/L (21-32); Bilirubin Direct 0.2 mg/dL (0-0.2); Bilirubin Indirect, Calculated 0.3 mg/dL (0.2-0.8); Bilirubin Total 0.5 mg/dL (0.2-1.0); Glomerular Filtration Rate 101 ml/min (=/>90); Glucose Level 106 mg/dL (74-106); Potassium 3.6 mEq/L (3.5-5.1); Protein, Total 7.7 g/dL (6.4-8.2); Sodium Level 139 mEq/L (136-145)
[2024-05-29 04:39] LABS: Barbiturates NEGATIVE (NEGATIVE); Benzodiazepines NEGATIVE (NEGATIVE); Cocaine NEGATIVE (NEGATIVE); METHAMPHETAM NEGATIVE (NEGATIVE); Methadone NEGATIVE (NEGATIVE); Opiates NEGATIVE (NEGATIVE); Phencyclidine NEGATIVE (NEGATIVE); THC Cannibis NEGATIVE (NEGATIVE)
--- NOTE | 2024-05-29 04:50 | ER ---
Nurse's Notes [facility] Name: Lio Garcia Age: 44 yrs Sex: Male : 1980 Arrival Date: 05/28/2024 Time: 23:41 Bed 19 Private MD: Diagnosis: Mechanical fall;Scalp laceration;Self-inflicted laceration to bilateral arms;Ingested razor blade;Ingestion of unknown substance Presentation: 05/28 23:55 Chief complaint: Patient states: fell from his bed hit the top of his head causing a kj2 cut. Care prior to arrival: None. Mechanism of Injury: Fall out of bed. Trauma event details: Injury occurred: May 28, 2024. 23:55 Acuity: SUNDEEP 3 kj2 23:55 Method Of Arrival: Other kj2 05/29 00:00 Coronavirus screen: Client denies travel out of the [place] in the last 14 days. Ebola kj2 Screen: No symptoms or risks identified at this time. Initial Sepsis Screen: Does the patient meet any 2 criteria? No. Patient's initial sepsis screen is negative. Does the patient have a suspected source of infection? No. Patient's initial sepsis screen is negative. Risk Assessment:. Historical: - Allergies: 00:02 No Known Allergies; kj2 - Immunization history: Last tetanus immunization: unknown. - Infectious Disease History:: Denies. - Family history:: not pertinent. - Social history:: Smoking status: unknown. Screenin/02 23:59 [facility] ED Fall Risk Assessment (Adult) History of falling in the last 3 months, kj2 including since admission No falls in past 3 months (0 pts) Confusion or Disorientation No (0 pts) Intoxicated or Sedated No (0 pts) Impaired Gait No (0 pts) Mobility Assist Device Used No (0 pt) Altered Elimination No (0 pt) Score/Fall Risk Level 0 - 2 = Low Risk Maintained a safe environment, Hourly rounding (assess needs \\T\\ fall precautionary measures) done. Abuse screen: Denies threats or abuse. Denies injuries from another. Nutritional screening: No deficits noted. Tuberculosis screening: No symptoms or risk factors identified. Primary Survey: 23:57 NO uncontrolled hemorrhage observed. Breathing/Chest: Spontaneous respiratory effort, kj2 equal unlabored respirations, breath sounds clear bilaterally, regular pattern, symmetrical chest rise and fall. Respiratory effort: unlabored, Breath sounds: clear, bilaterally. Circulation: No external hemorrhage present. Regular and strong central pulse, skin warm/dry/normal color. Disability Pupils are equal, round, reactive to light and accommodation. Exposure/Environment: Obvious injury(ies) are noted at this time: laceration on top of head. Reassessment Breathing: Spontaneous respiratory effort, equal unlabored respirations, breath sounds clear bilaterally, regular pattern with symmetrical chest rise and fall. Respiratory effort Unlabored Circulation: No external hemorrhage noted. Regular and strong central pulse, skin warm/dry/normal color. Disability: Pupils Pupils are equal, round, reactive to light and accomodation. Assessment: 23:56 General: Appears in no apparent distress. Behavior is calm, cooperative. Pain: kj2 Complains of pain in head/scalp. Neuro: Level of Consciousness is awake, alert, obeys commands, Oriented to person, place, time, situation. Cardiovascular: Patient's skin is warm and dry. Respiratory: Airway is patent Respiratory effort is even, unlabored. GI: No signs and/or symptoms were reported involving the gastrointestinal system. : No signs and/or symptoms were reported regarding the genitourinary system. 04/03 00:23 Derm: Wound noted top of head Wound is LACERATION. Musculoskeletal: Circulation, dd2 motion, and sensation intact. Range of motion: intact in all extremities. Injury Description: Laceration sustained to top of head moderate bleeding noted at this time. 02:26 Reassessment: Patient is alert, oriented x 3, equal unlabored respirations, skin dd2 warm/dry/pink. NO BLEEDING NOTED AT THIS TIME. CT COMPLETE, AWAITING RESULTS. 04:13 Derm: Wound noted palmar aspect of right forearm and palmar aspect of left forearm dd2 Wound is LACERATIONS. Injury Description: Laceration sustained to palmar aspect of right forearm and palmar aspect of left forearm is full thickness, 2.6 to 7.5 cm long, not bleeding, PARTIAL SUTURES NOTED TO RT FOREARM LACERATION was sustained 2 days ago. 05:20 Reassessment: Patient and/or family updated on plan of care and expected duration. Pain ha1 level reassessed. Patient is alert, oriented x 3, equal unlabored respirations, skin warm/dry/pink. 06:29 Reassessment: REPORT GIVEN TO AMEN,RN. ha1 06:30 Reassessment: Patient and/or family updated on plan of care and expected duration. Pain ha1 level reassessed. Patient is alert, oriented x 3, equal unlabored respirations, skin warm/dry/pink. Psych: 03:58 [place] Suicide Severity Screening: In the past month, have you wished you were dd2 or wished you could go to sleep and not wake up? Patient responds "No." "In the past month, have you actually had any thoughts of killing yourself?" Patient responds "no." "In your lifetime, have you ever done anything, started to do anything, or prepared to do anything to end your life?" Patient responds "no.". Subjective: Patient's mood is Delusions are denied, Hallucinations are denied. Objective: Patient is cooperative, Speech is normal, Affect is appropriate, Patient has mutilated themselves by PT SWALLOWED RAZOR BLADES BUT DENIES SI. Interventions: PT IN HANDCUFFS, IN CUSTODY. Safety Checks: Door is open. Pt denies substance abuse. Vital Signs: 05/28 23:58 Weight 106.14 kg; Height 6 ft. 7 in. ; kj2 05/29 00:10 BP 156 / 87; Pulse 86; Resp 16; Temp 98.3; Pulse Ox 98% on R/A; dd2 03:47 BP 147 / 99; Pulse 70; Resp 16; Temp 98.2; Pulse Ox 100% on R/A; dd2 05/28 23:58 Body Mass Index 26.36 (106.14 kg, 200.66 cm) kj2 [place] Coma Score: 05/28 23:58 Eye Response: spontaneous(4). Motor Response: obeys commands(6). Verbal Response: kj2 oriented(5). Total: 15. Trauma Score (Adult): 23:58 Eye Response: spontaneous(1); Verbal Response: oriented(1); Motor Response: obeys kj2 commands(2); Systolic BP: > 89 mm Hg(4); Respiratory Rate: 10 to 29 per min(4); [place] Score: 15; Trauma Score: 12 ED Course: 23:54 Patient arrived in ED. rv1 23:54 Sandy Rai RN is Primary Nurse. kj2 23:56 Triage completed. kj2 05/29 00:00 Arm band placed on Patient placed in an exam room, on a stretcher. kj2 00:01 Patient has correct armband on for positive identification. Provided Education on: call kj2 light. 00:02 Altaf Sanches MD is Attending Physician. rt 01:05 CT Head C Spine In Process Unspecified. EDMS 01:05 CT Chest Abdomen Pelvis W/O Contrast In Process Unspecified. EDMS 03:55 Client placed on continuous cardiac and pulse oximetry monitoring. NIBP monitoring dd2 applied. Door closed. Noise minimized. Warm blanket given. Pillow given. Verbal reassurance given. 03:55 Assist provider with laceration repair on top of head that was between 2.6 to 7.5 cm dd2 using alivia. Set up tray. Performed by Altaf Sanches MD Patient tolerated well. Initial lab(s) drawn, by ED staff, sent to lab. EKG done, by ED staff, reviewed by Altaf Sanches MD. Inserted saline lock: 20 gauge in left antecubital area, using aseptic technique. Blood collected. Flushed with 10 mL NS. Patient maintains SpO2 saturation greater than 95% on room air. 04:02 Initiated transfer with Camryn at [facility]. rv1 04:16 Assist provider with laceration repair on palmar aspect of right forearm and palmar dd2 aspect of left forearm that was 2.5 cm. or less using alivia. Set up tray. Performed by Altaf Sanches MD Patient tolerated well. 04:20 [facility] in [place] Declined due to capacity. Gave approval to rv1 transfer patient to another facility. 04:49 Initiated transfer with Mahogany at [facility] [place]. rv1 05:[address] [facility] [place] declined due to capacity. rv1 05:25 Initiated transfer with Evelyn at [facility]. rv1 05:30 [facility] declined due to capacity. rv1 05:37 Initiated transfer Patricia at [facility]. rv1 05:55 Pt auto-accepted by Dr. Hendrix to [facility]. Report # [phone]. rv1 06:00 Called Camryn at [facility] to facilitate transportation for pt. rv1 Corinne with dispatch will call back ETA. Administered Medications: 03:56 Drug: Lidocaine Infiltration (1 %) 5 ml 5 ml Infiltration once; to bedside {Note: dd2 ADMINISTERED BY MD BLANKA.} Volume: 5 ml; Route: Infiltration; Site: wound; Medication: 00:00 VIS not applicable for this client. kj2 Outcome: 04:50 ER care complete, transfer ordered by . rt 08:02 Patient left the ED. ll1 Signatures: Dispatcher [employer] Yolanda Charles RN RN ll1 Ivon Moran RN RN ha1 Altaf Sanches MD MD rt Lore [facility] rv1 Sandy Rai RN RN kj2 KAYLA ANDREWS RN RN dd2 Corrections: (The following items were deleted from the chart) 03:56 00:53 Patient did not have IV access during this emergency room visit. dd2 dd2 05:22 05:20 Initiated transfer with Camryn at [facility] Corrections Managed Care rv1 rv1
--- NOTE | 2024-05-29 04:50 | EDPHYS ---
Physician Documentation [facility] Name: Lio Garcia Age: 44 yrs Sex: Male : 1980 Arrival Date: 05/28/2024 Time: 23:41 Bed 19 Private MD: ED Physician Altaf Sanches HPI: 05/29 03:58 This 44 yrs old Black Male presents to ER via Other with complaints of Fall Injury. rt 03:58 Patient presents to the ED from assisted with a head injury. Patient reportedly fell off rt a bunk, hitting the top of his head causing a laceration, denies loss of consciousness. Patient states the also swallowed multiple razor blades today, complains of abdominal pain. Denies other acute complaints at this time, symptoms are moderate severity, no other aggravating alleviating factors.. Historical: - Allergies: 00:02 No Known Allergies; kj2 - Immunization history: Last tetanus immunization: unknown. - Infectious Disease History:: Denies. - Family history:: not pertinent. - Social history:: Smoking status: unknown. ROS: 03:58 Constitutional: Negative for fever, chills, and weight loss, Cardiovascular: Negative rt for chest pain, palpitations, and edema, Respiratory: Negative for shortness of breath, cough, wheezing, and pleuritic chest pain, MS/Extremity: Negative for injury and deformity, 03:58 Abdomen/GI: Positive for abdominal pain, Negative for vomiting, 03:58 Skin: Positive for laceration(s), Negative for Exam: 03:58 Constitutional: This is a well developed, well nourished patient who is awake, alert, rt and in no acute distress. Neck: Trachea midline, no thyromegaly or masses palpated, and no cervical lymphadenopathy. Supple, full range of motion without nuchal rigidity, or vertebral point tenderness. No Meningismus. Chest/axilla: Normal chest wall appearance and motion. Nontender with no deformity. No lesions are appreciated. Cardiovascular: Regular rate and rhythm with a normal S1 and S2. No gallops, murmurs, or rubs. Normal PMI, no JVD. No pulse deficits. Respiratory: Lungs have equal breath sounds bilaterally, clear to auscultation and percussion. No rales, rhonchi or wheezes noted. No increased work of breathing, no retractions or nasal flaring. Skin: Warm, dry with normal turgor. Normal color with no rashes, no lesions, and no evidence of cellulitis. MS/ Extremity: Pulses equal, no cyanosis. Neurovascular intact. Full, normal range of motion. 03:58 Head/face: 5 cm laceration, linear to the top of the head, no other external signs of trauma. 03:58 Abdomen/GI: Mild tenderness diffusely without rebound, guarding, distention, 04:03 ECG was reviewed by the Attending Physician. rt 04:56 Musculoskeletal/extremity: There is a 5 cm laceration to the right forearm, [address], patient states that this was sutured today, there is a gaping portion where a stitch had previously popped. On the right wrist, there is a week old laceration and partial stages of healing. On the left forearm, there is a 5 cm laceration occurring today. No active bleeding. Innumerable superficial lacerations to both upper extremities not amenable to repair. Vital Signs: 05/28 23:58 Weight 106.14 kg; Height 6 ft. 7 in. ; kj2 04 00:10 BP 156 / 87; Pulse 86; Resp 16; Temp 98.3; Pulse Ox 98% on R/A; dd2 03:47 BP 147 / 99; Pulse 70; Resp 16; Temp 98.2; Pulse Ox 100% on R/A; dd2 04/02 23:58 Body Mass Index 26.36 (106.14 kg, 200.66 cm) kj2 [place] Coma Score: 05/28 23:58 Eye Response: spontaneous(4). Motor Response: obeys commands(6). Verbal Response: kj2 oriented(5). Total: 15. Trauma Score (Adult): 23:58 Eye Response: spontaneous(1); Verbal Response: oriented(1); Motor Response: obeys kj2 commands(2); Systolic BP: > 89 mm Hg(4); Respiratory Rate: 10 to 29 per min(4); [place] Score: 15; Trauma Score: 12 Laceration: 05/29 04:00 Wound Repair of 5cm ( 2.0in ) subcutaneous laceration to top of head. Linear shaped.. rt Distal neuro/vascular/tendon intact. Anesthesia: Local anesthetic administered with 2 mls of 1% lidocaine. Wound prep: Copious irrigation. Skin closed with 5 staple Aishwarya using staple gun. Dressed with 4x4's. Patient tolerated well. 04:56 Wound Repair of 4cm ( 1.6in ) subcutaneous laceration to palmar aspect of left forearm. rt Linear shaped.. Distal neuro/vascular/tendon intact. Anesthesia: Local anesthetic administered with 2 mls of 1% lidocaine. Wound prep: Copious irrigation. Skin closed with 3 staple [place] using staple gun. Dressed with 4x4's. Patient tolerated well. 04:56 Wound Repair of 2cm ( 0.8in ) subcutaneous laceration to palmar aspect of right rt forearm. Previously sutured, 1 stitch popped. Distal neuro/vascular/tendon intact. Anesthesia: Local anesthetic administered with 1 mls of 1% lidocaine. Wound prep: Copious irrigation. Skin closed with 1 staple [place] using staple gun. Dressed with 4x4's. Patient tolerated well. MDM: 00:03 Medical Screening Exam initiated rt 05:09 Differential diagnosis: Head injury, laceration, intracranial hemorrhage, ingested rt razor blade, other coingestants. Data reviewed: vital signs, nurses notes, lab test result(s), EKG, radiologic studies. Consideration of Admission/Observation Patient requires transfer for higher level of care. I considered the following discharge prescriptions or medication management in the emergency department Medications were administered in the Emergency Department. See MAR. Independent interpretation of the following test(s) in the Emergency Department CT Scan: My interpretation is Razor blades noted in the stomach, no pneumoperitoneum, unremarkable radiodense presumed foreign body seen throughout the small, proximal large intestine. Counseling: I had a detailed discussion with the patient and/or guardian regarding the historical points, exam findings, and any diagnostic results supporting the discharge/admit diagnosis, lab results, radiology results, the need to transfer to another facility. Response to treatment: the patient's symptoms have mildly improved after treatment. 04 03:28 Order name: Acetaminophen; Complete Time: 04:47 rt 04 03:28 Order name: Basic Metabolic Panel; Complete Time: 04:47 rt 05/29 03:28 Order name: CBC with Diff; Complete Time: 04:47 rt 05/29 03:28 Order name: ETOH Level; Complete Time: 04:47 rt 04 03:28 Order name: Hepatic Function; Complete Time: 04:47 rt 04 03:28 Order name: PT-INR; Complete Time: 04:47 rt 04 03:28 Order name: Ptt, Activated; Complete Time: 04:47 rt 04 03:28 Order name: Salicylate; Complete Time: 04:47 rt 04 03:28 Order name: Urinalysis w/ reflexes; Complete Time: 05:05 rt 04 03:28 Order name: Urine Drug Screen; Complete Time: 04:47 rt 04 03:42 Order name: [place]; Complete Time: 04:47 rt 04 00:09 Order name: CT Head C Spine rt 05/29 00:09 Order name: CT Chest Abdomen Pelvis W/O Contrast rt 05/29 03:28 Order name: EKG - Nurse/Tech; Complete Time: 03:54 rt 04 03:28 Order name: IV Saline Lock; Complete Time: 03:54 rt 04 03:28 Order name: Labs collected and sent; Complete Time: 03:54 rt 04 03:28 Order name: Suicide Screening ([place]); Complete Time: 04:01 rt EC:03 Rate is 60 beats/min. Rhythm is regular, Normal Sinus Rhythm with No ectopy. QRS [place] rt is Normal. TN interval is normal. QRS interval is normal. QT interval is normal. No Q waves. T waves are Normal. No ST changes noted. Interpreted by me. Administered Medications: 03:56 Drug: Lidocaine Infiltration (1 %) 5 ml 5 ml Infiltration once; to bedside {Note: dd2 ADMINISTERED BY MD BLANKA.} Volume: 5 ml; Route: Infiltration; Site: wound; Disposition Summary: 05/29/24 04:50 Transfer Ordered Notes: Reason: Higher level of care rt Condition: Fair rt Problem: new rt Symptoms: are unchanged rt Transfer Location: [facility](05/29/24 05:58) rt Accepting Physician: (05/29/24 08:02) ll1 Diagnosis - Mechanical fall rt - Scalp laceration rt - Self-inflicted laceration to bilateral arms rt - Ingested razor blade rt - Ingestion of unknown substance rt Forms: - Medication Reconciliation Form rt - SBAR form rt Signatures: Dispatcher [employer] Yolanda Charles RN RN ll1 Altaf Sanches MD MD rt Sandy Rai, JONATHAN RN kj2 KAYLA ANDREWS, JONATHAN RN dd2 Corrections: (The following items were deleted from the chart) 03:29 03:29 ACETAMINOPHEN+C.LAB.BRZ ordered. EDMS EDMS 03:29 03:29 BASIC METABOLIC PANEL+C.LAB.BRZ ordered. EDMS EDMS 03:29 03:29 CBC+H.LAB.BRZ ordered. EDMS EDMS 03: 03:29 ETHANOL+C.LAB.BRZ ordered. EDMS EDMS 03:29 03:29 HEPATIC FUNCTION+C.LAB.BRZ ordered. EDMS EDMS 03:29 03:29 PROTIME (+INR)+COAG.LAB.BRZ ordered. EDMS EDMS 03:29 03:29 PTT, ACTIVATED+COAG.LAB.BRZ ordered. EDMS EDMS 03:29 03:29 SALICYLATE+C.LAB.BRZ ordered. EDMS EDMS 03:29 03:29 Urinalysis+U.LAB.BRZ ordered. EDMS EDMS 03:29 03:29 URINE DRUG SCREEN+UC.LAB.BRZ ordered. EDMS EDMS 05:58 04:50 DrPraful rt rt 05:58 04:50 [facility] rt rt 08:02 05:58 DrPraful rt ll1
[2024-05-29 05:01] LABS: Specific Gravity 1.013 (1.005-1.030); Urine Bilirubin NEGATIVE (Negative); Urine Blood Negative (Negative); Urine Clarity Clear (Clear); Urine Color Light-Yellow (Yellow); Urine Glucose NEGATIVE (Negative); Urine Ketones NEGATIVE (Negative); Urine Microscopic Reflex YN NO UMIC; Urine Nitrite NEGATIVE (Negative); Urine Protein NEGATIVE (Negative); Urine Urobilinogen Normal (Normal)
[2024-05-29 08:18] VITALS: BP 147/99; TEMP 98.2; O2SAT 100
== END 2024-05-29 08:02 | disposition short-term general hospital (02) ==
LOC: ER 23:41
DX: S01.01XA Laceration without foreign body of scalp, initial encounter (principal); S51.812A Laceration without foreign body of left forearm, initial encounter; S51.811A Laceration without foreign body of right forearm, initial encounter; T18.8XXA Foreign body in other parts of alimentary tract, initial encounter; X78.8XXA Intentional self-harm by other sharp object, initial encounter; W06.XXXA Fall from bed, initial encounter; Y92.143 Cell of prison as the place of occurrence of the external cause
CPT/HCPCS: 36415; 70450; 71250; 72125; 74176; 80048; 80076; 80143; 80178; 80179; 80307; 81003; 82077; 85025; 85610; 85730; 93005; J2003